=== PATIENT | male | born 1995 | race Caucasian/White ===

== ENCOUNTER 2019-11-26 20:56 | Emergency (ER) | payer MEDICAID ==
[~2019-11-26] VITALS: Ht 177.8 cm; Wt 93.0 kg
[2019-11-26] MEDS ORDERED: KETOROLAC 60MG/2ML VIAL IM ONE (21:45)
[2019-11-26] MEDS ORDERED: DIAZEPAM 5 MG/ML 2ML CPJ IM ONE (21:45)
[2019-11-26 23:50] VITALS: BP 143/85
== END 2019-11-27 | disposition home or self-care (01) ==
LOC: ER 20:56
DX: M43.6 Torticollis (principal)
CPT/HCPCS: 96372; 99284; J1885; J3360